=== PATIENT | male | born 1960 | race Caucasian/White ===

== ENCOUNTER 2018-07-11 16:01 | Emergency (ER) | payer OTHER ==
[2018-07-11 16:05] VITALS: BP 146/95
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
[2018-07-11] MEDS: Acetaminophen/HYDROcodone 325-5 MG Tab PO ONE (16:28)
[2018-07-11] MEDS: Ondansetron 4 MG Tab.DIS PO ONE (16:29)
[2018-07-11] MEDS: Diphtheria,Pertussis(Acell),Tetanus Vaccine 0.5 ML Syringe IM ONE (16:30)
== END 2018-07-11 16:47 | disposition home or self-care (01) ==
LOC: CC.ED 16:01
DX: S40.012A Contusion of left shoulder, initial encounter (principal); W00.0XXA Fall on same level due to ice and snow, initial encounter
CPT/HCPCS: 73030-LT; 90471; 90715; 96372; 99283; A9270-GY

== ENCOUNTER 2020-04-30 18:39 | Emergency (ER) | payer OTHER ==
[2020-04-30 19:01] LABS: CHLORIDE,CL 103 mEq/L (98-106); SODIUM,NA 140 mEq/L (136-145)
--- NOTE | 2020-04-30 19:08 | EDM.PDOC ---
ED HPI GENERAL MEDICAL PROBLEM - General Chief Complaint: Trauma Stated Complaint: TRAUMA Time Seen by Provider: 04/30/20 18:39 Source of Information: Reports: Patient, EMS, Family - History of Present Illness INITIAL COMMENTS - FREE TEXT/NARRATIVE: Dmitry is a 60 year old male who presents to the ED via [facility] with c/o fall with LOC from approximately 10 feet. 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 Bystanders report he was in a hurry and stepped back off the scaffolding, landing directly on his head. Unsure of additional details. Fall happened at approximately 1720, 1 hr and 40 minutes prior to ED arrival as location was a distance from facility and EMS crew. Was witnessed by 3 bystanders, however they are unaware of how long he was unconscious. GCS 14 upon arrival. He is alert, confused, opening eyes spontaneously, and obeying commands. He responds to questions inappropriately at times. He does not recall events leading up to or following fall. He is having active emesis upon arrival. Breathing without difficulty. Reports that his left hip hurts. ROM intact to all extremities. Does have small area of ecchymosis to left nose and orbital area. Patient exposed immediately upon arrival. No other open skin wounds. Cervical collar intact. He is on antiplatelet therapy due to hx of cardiac stents. Is currently on Effient and baby aspirin. Last ate at noon today. Onset: Today, Sudden Onset Date: 04/30/20 Onset Time: 17:20 Duration: Constant Location: Reports: Head, Lower Extremity, Left Associated Symptoms: Reports: Confusion, Headaches, Nausea/Vomiting. Denies: Chest Pain, Cough, cough w sputum, Loss of Appetite, Malaise, Shortness of Breath, Weakness Treatments REGISTERED RADIOGRAPHER: Reports: See EMS Report Left Headache Pain Score (Numeric/FACES): 10 Left Hip Pain Score (Numeric/FACES): 10 - Related Data Allergies Allergy/AdvReac Type Severity Reaction Status Date / Time No Known Allergies Allergy Verified 04/30/20 19:04 Home Meds: Home Meds Nitroglycerin 0.4 mg SL ASDIRECTED PRN 08/12/19 [History] Omeprazole 40 mg PO DAILY 08/12/19 [History] Prasugrel HCl [Effient] 10 mg PO DAILY 08/12/19 [History] atorvaSTATin [Lipitor] 80 mg PO DAILY 08/12/19 [History] Aspirin [Halfprin] 81 mg PO DAILY 04/30/20 [History] Metoprolol Tartrate 12.5 mg PO BID 04/30/20 [History] Past Medical History Cardiovascular History: Reports: PTCA Other Cardiovascular History: had cp after he fell on ice in May, said he slipped on ice, and had cp at times, sometimes then sitting, sometimes when working. Had associated fatigue. Saw a provider in [place], had a stress echo then referred on for angiogram through his wrist--healing. Denies any diabetes, hypertension, says he has always been a nonsmoker Musculoskeletal History: Reports: Other (See Below) Other Musculoskeletal History: clavicle fracture - Past Surgical History Musculoskeletal Surgical History: Reports: Other (See Below) Other Musculoskeletal Surgeries/Procedures:: plate to clavicle, rotator cuff surgery Social & Family History - Family History Family Medical History: No Pertinent Family History Review of Systems - Review of Systems Review Of Systems: Unable To Obtain Reason Not Obtained: confused, does not answer questions appropriately ED EXAM, GENERAL - Physical Exam Exam: See Below Exam Limited By: Altered Mental Status General Appearance: Alert, WD/WN, Moderate Distress Eye Exam: Bilateral Eye: EOMI, Normal Fundi, Normal Inspection, PERRL Ears: Normal External Exam, Normal Canal, Hearing Grossly Normal, Normal TMs Nose: Normal Inspection, Normal Mucosa, No Blood Throat/Mouth: Normal Inspection, Normal Lips, Normal Teeth, Normal Gums, Normal Oropharynx, Normal Voice, No Airway Compromise Head: Normocephalic, Facial Tenderness (left orbit ) Neck: Other (cervical collar intact) Respiratory/Chest: No Respiratory Distress, Lungs Clear, Normal Breath Sounds, No Accessory Muscle Use, Chest Non-Tender Cardiovascular: Normal Peripheral Pulses, Regular Rate, Rhythm, No Edema, No Murmur, No Rub Peripheral Pulses: 2+: Radial (L), Radial (R), Dorsalis Pedis (L), Dorsalis Pedis (R) GI/Abdominal: Normal Bowel Sounds, Soft, Pelvis Stable, Tender (LLQ) (Male) Exam: Normal Inspection Rectal (Males) Exam: Normal Exam Back Exam: Normal Inspection, Full Range of Motion, NT Extremities: Normal Inspection, Normal Range of Motion, Normal Capillary Refill, Leg Pain (left leg) Neurological: Alert, Confused. No: Normal Gait Psychiatric: Normal Affect, Normal Mood Skin Exam: Warm, Dry, Other (ecchymosis left nose and orbit ) Course - Vital Signs Last Recorded V/S: Last Vital Signs Temp 98.5 F 04/30/20 21:00 Pulse 62 04/30/20 21:00 Resp 20 04/30/20 21:00 BP 143/71 H 04/30/20 21:00 Pulse Ox 91 L 04/30/20 21:00 - Orders/Labs/Meds Orders: Active Orders 24 hr Category Date Time Status Cervical Spine wo Cont [CT] Stat Exams 04/30/20 18:27 Taken Chest 1V Frontal [CR] Stat Exams 04/30/20 18:25 Taken Head wo Cont [CT] Stat Exams 04/30/20 18:27 Taken Pelvis 1V or 2V [CR] Routine Exams 04/30/20 Taken CORONAVIRUS COVID-19 RAPID [MOLEC] Stat Lab 04/30/20 19:16 Ordered fentaNYL [Sublimaze] Med 04/30/20 18:50 Active 50 mcg IVPUSH Q6H PRN Medication Orders Fentanyl (Sublimaze) 50 mcg IVPUSH Q6H PRN PRN Reason: Pain Last Admin: 04/30/20 19:09 Dose: 50 mcg Documented by: [id number] Labs: Laboratory Tests 04/30/20 04/30/20 04/30/20 Range/Units 18:45 18:45 19:16 WBC 11.7 H (5.0-10.0) 10^3/uL RBC 5.24 (4.50-6.00) 10^6/uL Hgb 14.8 (14.0-18.0) g/dL Hct 44.4 (40.0-54.0) % MCV 84.7 (82.0-94.0) fL MCH 28.2 (27.0-32.0) pg MCHC 33.3 (33.0-38.0) g/dL RDW Coeff of Bindu 12.4 (11.0-15.0) % Plt Count 333 (150-400) 10^3/uL Add Manual Diff Yes Neutrophils % (Manual) 65 (35-85) % Band Neutrophils % 2 (0-5) % Lymphocytes % (Manual) 23 (21-55) % Monocytes % (Manual) 9 (2-12) % Eosinophils % (Manual) 1 (0-5) % Reactive Lymphocytes Few H (NOT SEEN) Sodium 140 (136-145) mEq/L Potassium 3.3 L (3.5-5.0) mEq/L Chloride 103 (98-106) mEq/L Carbon Dioxide 24 (21-32) mmol/L BUN 16 (7-18) mg/dL Creatinine 1.2 (0.7-1.3) mg/dL Est Cr Clr Drug Dosing TNP Estimated GFR (MDRD) > 60 (>=60) mL/min Glucose 144 H (75-99) mg/dL Calcium 8.5 (8.4-10.1) mg/dL Total Bilirubin 0.5 (0.0-1.0) mg/dL AST 75 H (15-37) U/L ALT 82 H (12-78) U/L Alkaline Phosphatase 113 (46-116) U/L Total Protein 7.2 (6.4-8.2) g/dL Albumin 3.7 (3.4-5.0) g/dL Urine Color (YELLOW) Urine Appearance (CLEAR) Urine pH (4.5-8.0) Ur Specific Maiden (1.003-1.020) Urine Protein (NEGATIVE) mg/dL Urine Glucose (UA) (NEGATIVE) mg/dL Urine Ketones (NEGATIVE) mg/dL Urine Occult Blood (NEGATIVE) Urine Nitrite (NEGATIVE) Urine Bilirubin (NEGATIVE) Urine Urobilinogen (0.2-1.0) EU/dL Ur Leukocyte Esterase (NEGATIVE) Urine RBC (0-5) /HPF Urine WBC (0-5) /HPF Ur Epithelial Cells (NOT SEEN) /HPF Urine Bacteria (NOT SEEN) /HPF SARS CoV-2 RNA Rapid HOWARD Negative (NEGATIVE) 04/30/20 Range/Units 19:34 WBC (5.0-10.0) 10^3/uL RBC (4.50-6.00) 10^6/uL Hgb (14.0-18.0) g/dL Hct (40.0-54.0) % MCV (82.0-94.0) fL MCH (27.0-32.0) pg MCHC (33.0-38.0) g/dL RDW Coeff of Bindu (11.0-15.0) % Plt Count (150-400) 10^3/uL Add Manual Diff Neutrophils % (Manual) (35-85) % Band Neutrophils % (0-5) % Lymphocytes % (Manual) (21-55) % Monocytes % (Manual) (2-12) % Eosinophils % (Manual) (0-5) % Reactive Lymphocytes (NOT SEEN) Sodium (136-145) mEq/L Potassium (3.5-5.0) mEq/L Chloride (98-106) mEq/L Carbon Dioxide (21-32) mmol/L BUN (7-18) mg/dL Creatinine (0.7-1.3) mg/dL Est Cr Clr Drug Dosing Estimated GFR (MDRD) (>=60) mL/min Glucose (75-99) mg/dL Calcium (8.4-10.1) mg/dL Total Bilirubin (0.0-1.0) mg/dL AST (15-37) U/L ALT (12-78) U/L Alkaline Phosphatase (46-116) U/L Total Protein (6.4-8.2) g/dL Albumin (3.4-5.0) g/dL Urine Color Yellow (YELLOW) Urine Appearance Clear (CLEAR) Urine pH 7.0 (4.5-8.0) Ur Specific Maiden 1.025 H (1.003-1.020) Urine Protein Negative (NEGATIVE) mg/dL Urine Glucose (UA) Negative (NEGATIVE) mg/dL Urine Ketones Negative (NEGATIVE) mg/dL Urine Occult Blood Trace-intact H (NEGATIVE) Urine Nitrite Negative (NEGATIVE) Urine Bilirubin Negative (NEGATIVE) Urine Urobilinogen 0.2 (0.2-1.0) EU/dL Ur Leukocyte Esterase Negative (NEGATIVE) Urine RBC 0-5 (0-5) /HPF Urine WBC 0-5 (0-5) /HPF Ur Epithelial Cells Occasional H (NOT SEEN) /HPF Urine Bacteria Occasional H (NOT SEEN) /HPF SARS CoV-2 RNA Rapid HOWARD (NEGATIVE) Meds: Medications Generic Name Dose Route Start Last Admin Trade Name Freq PRN Reason Stop Dose Admin Fentanyl 50 mcg 04/30/20 18:50 04/30/20 19:09 Sublimaze IVPUSH 50 mcg Q6H PRN Administration Pain Discontinued Medications Generic Name Dose Route Start Last Admin Trade Name Freq PRN Reason Stop Dose Admin Desmopressin Acetate 24 mcg 04/30/20 19:35 04/30/20 19:59 Desmopressin IV 04/30/20 19:36 24 mcg ONETIME ONE Administration Hydromorphone HCl 1 mg 04/30/20 19:33 04/30/20 19:38 Dilaudid IVPUSH 04/30/20 19:34 1 mg ONETIME ONE Administration Hydromorphone HCl 1 mg 04/30/20 19:33 04/30/20 19:38 Dilaudid IVPUSH 04/30/20 19:34 Not Given ONETIME ONE Ondansetron HCl 4 mg 04/30/20 19:09 04/30/20 19:17 Zofran IVPUSH 04/30/20 19:10 4 mg STAT STA Administration - Radiology Interpretation Free Text/Narrative:: Multiple brain bleeds. See report. CT Results Date: 04/30/20 CT Results Time: 19:27 - Re-Assessments/Exams Free Text/Narrative Re-Assessment/Exam: 04/30/20 19:10 Discussed with my concerns that he has brain bleed. Recommend we try to get transfer to higher level of care. She requests [facility]. Attempted to call [facility] for transfer. Told they will call me back. 04/30/20 19:31 Call back received from [facility]. They cannot accept at this time. No ICU beds. Will try [place]. 04/30/20 19:32 Called [facility]. Consulted with Dr. Patiño, ER physician at [facility] who accepted the patient for transfer. Recommends giving 24 mcg desmopressin and platelets. Unfortunately, we do not have platelets available. 04/30/20 20:02 [facility] 23 minutes out. GCS remains 14. VSS. No change in status. and daughter at bedside. Discussed risks and benefits of transfer. Risks of transfer include worsening of condition, , and helicopter crash. Benefits of transfer include higher level of care with neurosurgical consultation. Risks of nontransfer include worsening of condition, , and no neurosurgical speciality. Benefits of nontransfer include convenience. verbalized understanding and was agreeable to transfer via [facility]. 04/30/20 20:36 [facility] at bedside. Patient discharged to their care. Departure - Departure Time of Disposition: 20:22 Disposition: DC/Tfer to Acute Hospital 02 Condition: Critical Clinical Impression: Subdural hemorrhage, Trauma Fall as cause of accidental injury on farm [place] place of occurrence Qualifiers: Encounter type: initial encounter Qualified Code(s): W19.XXXA - Unspecified fall, initial encounter - Discharge Information Referrals: PCP,Unknown [Primary Care Provider] - Forms: ED Department Discharge Sepsis Event Note (ED) - Focused Exam Vital Signs: Vital Signs Temp Pulse Resp BP Pulse Ox 04/30/20 21:00 98.5 F 62 20 143/71 H 91 L - Problem List & Annotations (1) Fall as cause of accidental injury on farm as place of occurrence SNOMED Code(s): 214280439 Code(s): W19.XXXA - UNSPECIFIED FALL, INITIAL ENCOUNTER; Y92.79 - OTH FARM LOCATION PLACE Status: Acute Current Visit: Yes Qualifiers: Encounter type: initial encounter Qualified Code(s): W19.XXXA - Unspecified fall, initial encounter; Y92.79 - Other farm location as the place of occurrence of the external cause (2) Trauma SNOMED Code(s): 419432819 Code(s): T14.90XA - INJURY, UNSPECIFIED, INITIAL ENCOUNTER Status: Acute Current Visit: Yes (3) Subarachnoid bleed SNOMED Code(s): 143446930 Code(s): I60.9 - NONTRAUMATIC SUBARACHNOID HEMORRHAGE, UNSPECIFIED Status: Acute Current Visit: Yes (4) Intraparenchymal hematoma of left side of brain due to trauma SNOMED Code(s): 288766014, 375480063 Code(s): S06.350A - TRAUM HEMOR LEFT CEREBRUM W/O LOSS OF CONSCIOUSNESS, INIT Status: Acute Current Visit: Yes (5) Occipital fracture SNOMED Code(s): 8080525 Code(s): S02.119A - UNSP FRACTURE OF OCCIPUT, INIT ENCNTR FOR CLOSED FRACTURE Status: Acute Current Visit: Yes (6) Orbital fracture SNOMED Code(s): 22406777 Code(s): S02.85XA - FRACTURE OF ORBIT, UNSPECIFIED, INIT Status: Acute Current Visit: Yes (7) Subdural hemorrhage SNOMED Code(s): 66666989 Code(s): I62.00 - NONTRAUMATIC SUBDURAL HEMORRHAGE, UNSPECIFIED Status: Acute Current Visit: Yes (8) Left groin pain SNOMED Code(s): 00277002692981134 Code(s): R10.32 - LEFT LOWER QUADRANT PAIN Status: Acute Current Visit: Yes - Problem List Review Problem List Initiated/Reviewed/Updated: Yes - My Orders Last 24 Hours: My Active Orders 04/30/20 Pelvis 1V or 2V [CR] Routine 04/30/20 18:25 Chest 1V Frontal [CR] Stat 04/30/20 18:27 Cervical Spine wo Cont [CT] Stat Head wo Cont [CT] Stat 04/30/20 18:50 fentaNYL [Sublimaze] 50 mcg IVPUSH Q6H PRN 04/30/20 19:16 CORONAVIRUS COVID-19 RAPID [MOLEC] Stat - Assessment/Plan Last 24 Hours: My Active Orders 04/30/20 Pelvis 1V or 2V [CR] Routine 04/30/20 18:25 Chest 1V Frontal [CR] Stat 04/30/20 18:27 Cervical Spine wo Cont [CT] Stat Head wo Cont [CT] Stat 04/30/20 18:50 fentaNYL [Sublimaze] 50 mcg IVPUSH Q6H PRN 04/30/20 19:16 CORONAVIRUS COVID-19 RAPID [MOLEC] Stat Assessment:: Multiple Brain Bleeds Trauma Fall from 10 feet Left groin pain Plan: 60 yo male presents to the ED via [facility] after sustaining fall off a scaffolding from approximately 10 feet. GCS 14 on arrival and remained 14 throughout ED stay. VSS throughout ED stay. Patient was exposed upon arrival. C collar in place. Palpation throughout revealed tenderness of left hip and left orbit and occipital area. Pelvis stable. No tenderness to chest wall. Patient was taken to CT for head and cervical spine CT. CT head reveals acute left subdural hematoma with left to right midline shift of 6 mm, subarachnoid bleed of left frontal and temporal and right frontal lobe, intraparenchymal hemorrhage of left frontal and temporal lobes, as well as fracture of right occipital bone and left orbital hays. Also possible fracture of left parietal bone. CT c spine negative. Chest and pelvis xrays also negative for acute findings. Patient was given 24 mcg desmopressin IV per recommendations from accepting provider. Also recommended platelets, however we do not have these available. Patient was c/o significant pain to left hip and head. Was given total of 50 mcg fentanyl and 1 mg Dilaudid throughout ED visit. Also received 4 mg Zofran for active emesis. Patient will be transferred to [facility] via [facility]. He was discharged from facility in stable, but critical condition.
[2020-04-30] MEDS: fentaNYL 100 MCG/2 ML SDV IVPUSH PRN (19:09)
[2020-04-30] MEDS: Ondansetron 4 MG/2 ML SDV IVPUSH STA (19:17)
[2020-04-30] MEDS: HYDROmorphone 1 MG/ML Syringe IVPUSH ONE ×2 (19:38)
[2020-04-30] MEDS: Desmopressin 4 MCG/1 ML Amp IV ONE (19:59)
== END 2020-04-30 20:45 ==
LOC: CC.ED 18:39
DX: S06.5X9A Traumatic subdural hemorrhage with loss of consciousness of unspecified duration, initial encounter (principal); S00.33XA Contusion of nose, initial encounter; S05.12XA Contusion of eyeball and orbital tissues, left eye, initial encounter; Z20.828 Contact with and (suspected) exposure to other viral communicable diseases; W12.XXXA Fall on and from scaffolding, initial encounter; Y92.61 Building [any] under construction as the place of occurrence of the external cause
CPT/HCPCS: 36415; 51702; 70450; 71045; 72125; 72170; 80053; 81001; 85025; 87635; 93005; 96374; 96375; 99285; J1170; J2405; J2597; J3010; 93010; 99284; U0002

== ENCOUNTER 2022-05-26 00:01 | Emergency (ER) | payer OTHER ==
[2022-05-26] MEDS ORDERED: LORazepam 2 MG/ML Syringe ONE ×2 (00:04→00:12)
[2022-05-26] MEDS ORDERED: Sodium Chloride 0.9% 1,000 ML ONE (00:37)
[2022-05-26 00:41] LABS: CHLORIDE,CL 104 mEq/L (98-106); ESTIMATED GFR 52 mL/min (>=60); SODIUM,NA 139 mEq/L (136-145)
[2022-05-26 00:44] LABS: PTT,PARTIAL THROMBOPLSTIN TIME 22.3 SEC (23.2-32.3)
[2022-05-26] MEDS ORDERED: Sodium Chloride 0.9% 1,000 ML IV SCH (01:00)
[2022-05-26] MEDS ORDERED: LORazepam 2 MG/ML Syringe IVPUSH ONE ×2 (01:29→01:30)
[2022-05-26] MEDS ORDERED: Azithromycin 500 MG in Sodium Chloride 0.9% 250 ML IV SCH (01:30)
[2022-05-26] MEDS ORDERED: cefTRIAXone 1 GM Vial IVPUSH SCH (01:30)
[2022-05-26] MEDS ORDERED: Midazolam 1 MG/ML 2 ML SDV ONE (01:40)
== END 2022-05-26 04:30 ==
LOC: CC.ED 00:01
DX: R56.9 Unspecified convulsions (principal); J10.1 Influenza due to other identified influenza virus with other respiratory manifestations; R41.82 Altered mental status, unspecified; Z79.899 Other long term (current) drug therapy; Z79.82 Long term (current) use of aspirin; Z20.822 Contact with and (suspected) exposure to COVID-19; W19.XXXA Unspecified fall, initial encounter
CPT/HCPCS: 36415; 70450; 71045; 72125; 80053; 84484; 85025; 85610; 85730; 87804; 96361; 96374; 96375; 99284; 99285-25; J0456; J0696; J2060; J7030; J7050; U0002

== ENCOUNTER 2023-11-25 11:38 | Emergency (ER) | payer OTHER ==
[2023-11-25 11:53] VITALS: BP 138/81; PULSE 64
[2023-11-25] MEDS: Diphtheria,Pertussis(Acell),Tetanus Vaccine 0.5 ML Syringe IM ONE (12:02)
[2023-11-25] MEDS: Bacitracin/Neomycin/Polymyxin B Oint 0.9 GM U/D Packet TOP ONE (12:05)
== END 2023-11-25 12:19 | disposition home or self-care (01) ==
LOC: CC.ED 11:38
DX: S01.01XA Laceration without foreign body of scalp, initial encounter (principal); Z23 Encounter for immunization; W22.8XXA Striking against or struck by other objects, initial encounter
CPT/HCPCS: 12002; 90471; 90715; 99282-25; A9270-GY

== ENCOUNTER 2024-02-28 23:10 | Observation (INO) | payer MEDICARE, OTHER ==
[2024-02-28 23:55] LABS: BASOPHILS ABSOLUTE AUTO 0.02 10^3/uL (0.00-0.50); BASOPHILS PERCENT AUTO 0.3 % (0-1); EOSINOPHILS ABSOLUTE AUTO 0.12 10^3/uL (0.00-1.50); EOSINOPHILS PERCENT AUTO 1.8 % (0-6); HEMATOCRIT 48.1 % (42.0-52.0); HEMOGLOBIN 15.7 g/dL (14.0-18.0); IMMATURE GRAN ABSOLUTE AUTO 0.01 10^3/uL (0.00-0.49); IMMATURE GRAN PERCENT AUTO 0.2 % (0.0-4.9); LYMPHOCYTES ABSOLUTE AUTO 1.95 10^3/uL (0.60-5.00); LYMPHOCYTES PERCENT AUTO 29.9 % (24-44); MEAN CORPUSCULAR HEMOGLOBIN 30.3 pg (27.0-32.0); MEAN CORPUSCULAR HGB CONC 32.6 g/dL (32.0-36.0); MEAN CORPUSCULAR VOLUME 92.7 fL (83.0-97.0); MONOCYTES ABSOLUTE AUTO 0.82 10^3/uL (0.00-1.50); MONOCYTES PERCENT AUTO 12.6 % (0-10); NEUTROPHILS PERCENT AUTO 55.2 % (41-71); PLATELET COUNT,PLT 177 10^3/uL (150-400); RED BLOOD CELL COUNT 5.19 x10^6/uL (4.50-6.00); WHITE BLOOD CELL COUNT,WBC 6.5 10^3/uL (4.0-11.0)
[2024-02-29 00:08] LABS: ALBUMIN 3.4 g/dL (3.4-5.0); BILIRUBIN TOTAL 0.8 mg/dL (0.0-1.0); C-REACTIVE PROTEIN 0.8 mg/dL (<=0.50); CALCIUM 8.9 mg/dL (8.4-10.1); CREATININE 1.2 mg/dL (0.7-1.3); EST CRCL DRUG DOSING (CG) 58.14 mL/min; MAGNESIUM 1.9 mg/dL (1.8-2.4); PROTEIN TOTAL,TP 6.5 g/dL (6.4-8.2)
[2024-02-29] MEDS: Iopamidol 755 Mg/ML 100 ML Bottle IVPUSH ONE (00:21)
[2024-02-29] MEDS ORDERED: Acetaminophen 650 MG Supp RECTAL PRN (02:24)
[2024-02-29] MEDS ORDERED: Ondansetron 4 MG Tab.DIS PO PRN (02:24)
[2024-02-29] MEDS ORDERED: Sodium Chloride 0.9% 10 ML Syringe FLUSH PRN (02:24)
[2024-02-29] MEDS ORDERED: Ondansetron 4 MG/2 ML SDV IV PRN (02:24)
[2024-02-29] MEDS ORDERED: HYDROmorphone 1 MG/ML Syringe IVPUSH PRN (02:24)
[2024-02-29] MEDS ORDERED: Acetaminophen 325 MG Tab PO PRN (02:24)
[2024-02-29] MEDS ORDERED: Acetaminophen/HYDROcodone 325-5 MG Tab PO PRN (02:24)
[2024-02-29] MEDS ORDERED: Naloxone 2 MG/2 ML Syringe IVPUSH PRN (02:24)
[2024-02-29 07:31] LABS: BASOPHILS ABSOLUTE AUTO 0.01 10^3/uL (0.00-0.50); BASOPHILS PERCENT AUTO 0.1 % (0-1); EOSINOPHILS ABSOLUTE AUTO 0.08 10^3/uL (0.00-1.50); EOSINOPHILS PERCENT AUTO 1.1 % (0-6); HEMATOCRIT 44.9 % (42.0-52.0); HEMOGLOBIN 14.9 g/dL (14.0-18.0); IMMATURE GRAN ABSOLUTE AUTO 0.01 10^3/uL (0.00-0.49); IMMATURE GRAN PERCENT AUTO 0.1 % (0.0-4.9); LYMPHOCYTES ABSOLUTE AUTO 2.62 10^3/uL (0.60-5.00); LYMPHOCYTES PERCENT AUTO 35.9 % (24-44); MEAN CORPUSCULAR HEMOGLOBIN 30.4 pg (27.0-32.0); MEAN CORPUSCULAR HGB CONC 33.2 g/dL (32.0-36.0); MEAN CORPUSCULAR VOLUME 91.6 fL (83.0-97.0); MONOCYTES ABSOLUTE AUTO 0.82 10^3/uL (0.00-1.50); MONOCYTES PERCENT AUTO 11.2 % (0-10); NEUTROPHILS ABSOLUTE AUTO 3.75 x10^3/uL (1.80-8.00); NEUTROPHILS PERCENT AUTO 51.6 % (41-71); PLATELET COUNT,PLT 177 10^3/uL (150-400); WHITE BLOOD CELL COUNT,WBC 7.3 10^3/uL (4.0-11.0)
[2024-02-29] MEDS: Venlafaxine 37.5 MG Cap.ER PO SCH (07:44)
[2024-02-29] MEDS: Tamsulosin 0.4 MG Cap.ER PO SCH (07:44)
[2024-02-29] MEDS: Divalproex Sodium Delayed-Release 250 MG Tab.CR PO SCH (07:44)
[2024-02-29] MEDS: Multivitamin Tab PO SCH (07:44)
[2024-02-29 07:45] LABS: APPEARANCE,URINE CLEAR (CLEAR); BILIRUBIN,URINE NEGATIVE (NEGATIVE); COLOR,URINE YELLOW (YELLOW); GLUCOSE,URINE NEGATIVE (NEGATIVE); KETONES,URINE NEGATIVE (NEGATIVE); LEUKOCYTE ESTERASE,URINE NEGATIVE (NEGATIVE); NITRITE,URINE NEGATIVE (NEGATIVE); OCCULT BLOOD,URINE NEGATIVE (NEGATIVE); PROTEIN,URINE NEGATIVE (NEGATIVE); UROBILINOGEN,URINE 0.2 EU/dL (0.2-1.0)
[2024-02-29] MEDS: Magnesium Oxide 400 MG Tab PO SCH (07:45)
[2024-02-29] MEDS: Cholecalciferol (Vitamin D3) 5,000 UNIT Tab PO SCH (07:45)
[2024-02-29] MEDS: Rosuvastatin 10 MG Tab PO SCH (07:45)
[2024-02-29 07:46] LABS: ALBUMIN 3.1 g/dL (3.4-5.0); BILIRUBIN TOTAL 0.6 mg/dL (0.0-1.0); C-REACTIVE PROTEIN 0.74 mg/dL (<=0.50); CALCIUM 8.9 mg/dL (8.4-10.1); CREATININE 1.2 mg/dL (0.7-1.3); EST CRCL DRUG DOSING (CG) 58.14 mL/min; POTASSIUM,K 4.1 mEq/L (3.5-5.0)
[2024-02-29] MEDS ORDERED: Non-Formulary Medication 1 Each (Divalproex Sodium 500 MG Tablet.Dr) PO SCH (08:00)
[2024-02-29] MEDS ORDERED: LACOSAMIDE 200 MG PO SCH (08:00)
[2024-02-29] MEDS ORDERED: Non-Formulary Medication 1 Each (Venlafaxine [Effexor] 37.5 MG Tablet) PO SCH (08:00)
[2024-02-29] MEDS: LACOSAMIDE 200 MG PO SCH (08:24)
[2024-02-29] MEDS ORDERED: HYDROmorphone 0.5 MG/0.5 ML Syringe IVPUSH PRN (08:43)
[2024-02-29] MEDS ORDERED: Divalproex Sodium Delayed-Release 250 MG Tab.CR PO SCH ×2 (20:00)
== END 2024-02-29 13:35 | disposition home or self-care (01) ==
LOC: CC.ED 23:10 → CC.MS 02-29 00:50 → UNDOADMOB 02-29 00:50 → CC.MS 02-29 00:53 → CC.ED 02-29 00:55
PROVIDERS: ADMIT Nurse Practitioner Family; ATTEND Nurse Practitioner Family
DX: S80.212A Abrasion, left knee, initial encounter (principal); W10.8XXA Fall (on) (from) other stairs and steps, initial encounter
CPT/HCPCS: 36415; 70450; 71045; 73030-RT; 73080-RT; 74177; 80053; 81003; 83735; 85025; 86140; 93005; 93010; 99236; A9270-GY; G0378; Q9967

== ENCOUNTER 2024-06-18 09:13 | Emergency (ER) | payer MEDICARE, OTHER ==
[2024-06-18] MEDS: Lidocaine 1% 5 ML VIAL INJECT ONE (09:39)
[2024-06-18] MEDS: Bacitracin/Neomycin/Polymyxin B Oint 0.9 GM U/D Packet TOP ONE (09:57)
== END 2024-06-18 10:04 | disposition home or self-care (01) ==
LOC: CC.ED 09:13
DX: S01.111A Laceration without foreign body of right eyelid and periocular area, initial encounter (principal); Z79.82 Long term (current) use of aspirin; Z79.899 Other long term (current) drug therapy; W18.30XA Fall on same level, unspecified, initial encounter
CPT/HCPCS: 12011; 99282; A9270; J3490

== ENCOUNTER 2024-07-24 13:52 | Emergency (ER) | payer MEDICARE, OTHER ==
[2024-07-24] MEDS: Lidocaine 1% 5 ML VIAL INJECT ONE (13:58)
[2024-07-24] MEDS: Bacitracin Oint 1 GM U/D Packet TOP ONE (13:58)
== END 2024-07-24 14:40 | disposition home or self-care (01) ==
LOC: CC.ED 13:52
DX: S01.511A Laceration without foreign body of lip, initial encounter (principal); Z79.82 Long term (current) use of aspirin; Z79.899 Other long term (current) drug therapy; W18.39XA Other fall on same level, initial encounter; Y93.89 Activity, other specified
CPT/HCPCS: 12011; 99282; J2003

== ENCOUNTER 2024-11-10 13:07 | Inpatient (IN) | payer MEDICARE, OTHER ==
[2024-11-10] MEDS ORDERED: Ondansetron 4 MG/2 ML SDV IV PRN (15:18)
[2024-11-10] MEDS: Lactobacillus Rhamnosus GG (Probiotic) Cap PO SCH (19:54)
[2024-11-10] MEDS: Fish Oil/Omega-3 Fatty Acids 1 Gm Cap PO SCH (19:54)
[2024-11-10] MEDS: Divalproex Sodium Delayed-Release 250 MG Tab.CR PO SCH ×2 (19:54→19:55)
[2024-11-10] MEDS: LACOSAMIDE 200 MG PO SCH (20:42)
[2024-11-11] MEDS ORDERED: Non-Formulary Medication 1 Each (Magnesium Oxide [Magnesium] 500 MG Capsule) PO SCH (08:00)
[2024-11-11] MEDS: Cholecalciferol (Vitamin D3) 5,000 UNIT Tab PO SCH (08:24)
[2024-11-11] MEDS: Calcium Carbonate/Vitamin D3 1250 MG-5 MCG Tab PO SCH (08:26)
[2024-11-11] MEDS: Venlafaxine 37.5 MG Cap.ER PO SCH (08:26)
[2024-11-14 07:17] LABS: BASOPHILS ABSOLUTE AUTO 0.03 10^3/uL (0.00-0.50); BASOPHILS PERCENT AUTO 0.8 % (0-1); EOSINOPHILS ABSOLUTE AUTO 0.09 10^3/uL (0.00-1.50); EOSINOPHILS PERCENT AUTO 2.4 % (0-6); IMMATURE GRAN ABSOLUTE AUTO 0.01 10^3/uL (0.00-0.49); IMMATURE GRAN PERCENT AUTO 0.3 % (0.0-4.9); LYMPHOCYTES ABSOLUTE AUTO 2.06 10^3/uL (0.60-5.00); LYMPHOCYTES PERCENT AUTO 54.8 % (24-44); MONOCYTES ABSOLUTE AUTO 0.50 10^3/uL (0.00-1.50); MONOCYTES PERCENT AUTO 13.3 % (0-10); NEUTROPHILS ABSOLUTE AUTO 1.07 x10^3/uL (1.80-8.00); NEUTROPHILS PERCENT AUTO 28.4 % (41-71); PLATELET COUNT,PLT 215 10^3/uL (150-400); RED BLOOD CELL COUNT 4.24 x10^6/uL (4.50-6.00); WHITE BLOOD CELL COUNT,WBC 3.8 10^3/uL (4.0-11.0)
[2024-11-14 07:20] LABS: SEDIMENTATION RATE MANUAL 36 mm/hr (0-15)
[2024-11-14 07:33] LABS: ALANINE AMINOTRANSFERASE,ALT 31 U/L (12-78); ASPARTATE AMNIOTRANSFERASE,AST 40 U/L (15-37); BILIRUBIN TOTAL 0.3 mg/dL (0.0-1.0); BLOOD UREA NITROGEN,BUN 13 mg/dL (7-18); CARBON DIOXIDE,CO2 29 mmol/L (21-32); CHLORIDE,CL 105 mEq/L (98-106); CREATINE KINASE,CK 29 U/L (35-232); CREATININE 1.0 mg/dL (0.7-1.3); EST CRCL DRUG DOSING (CG) 72.20 mL/min; GLUCOSE RANDOM 86 mg/dL (75-99); POTASSIUM,K 4.0 mEq/L (3.5-5.0); PROTEIN TOTAL,TP 7.0 g/dL (6.4-8.2); SODIUM,NA 141 mEq/L (136-145)
[2024-11-14 07:36] LABS: ESTIMATED GFR 84 mL/min (>=60)
[2024-11-17 08:04] LABS: ALANINE AMINOTRANSFERASE,ALT 28.0 U/L (12-78); ASPARTATE AMNIOTRANSFERASE,AST 36.0 U/L (15-37); BILIRUBIN TOTAL 0.3 mg/dL (0.0-1.0); BLOOD UREA NITROGEN,BUN 11.0 mg/dL (7-18); CARBON DIOXIDE,CO2 29.0 mmol/L (21-32); CHLORIDE,CL 106.0 mEq/L (98-106); CREATININE 0.9 mg/dL (0.7-1.3); EST CRCL DRUG DOSING (CG) 80.22 mL/min; GLUCOSE RANDOM 93.0 mg/dL (75-99); POTASSIUM,K 4.0 mEq/L (3.5-5.0); PROTEIN TOTAL,TP 7.3 g/dL (6.4-8.2); SODIUM,NA 141.0 mEq/L (136-145)
[2024-11-17 08:11] LABS: ESTIMATED GFR 95.0 mL/min (>=60)
[2024-11-21 07:54] LABS: BASOPHILS ABSOLUTE AUTO 0.03 10^3/uL (0.00-0.50); BASOPHILS PERCENT AUTO 0.9 % (0-1); EOSINOPHILS ABSOLUTE AUTO 0.08 10^3/uL (0.00-1.50); EOSINOPHILS PERCENT AUTO 2.4 % (0-6); IMMATURE GRAN ABSOLUTE AUTO 0.01 10^3/uL (0.00-0.49); IMMATURE GRAN PERCENT AUTO 0.3 % (0.0-4.9); LYMPHOCYTES ABSOLUTE AUTO 1.76 10^3/uL (0.60-5.00); LYMPHOCYTES PERCENT AUTO 53.7 % (24-44); MONOCYTES ABSOLUTE AUTO 0.44 10^3/uL (0.00-1.50); MONOCYTES PERCENT AUTO 13.4 % (0-10); NEUTROPHILS ABSOLUTE AUTO 0.96 x10^3/uL (1.80-8.00); NEUTROPHILS PERCENT AUTO 29.3 % (41-71); PLATELET COUNT,PLT 190 10^3/uL (150-400); RED BLOOD CELL COUNT 4.76 x10^6/uL (4.50-6.00); WHITE BLOOD CELL COUNT,WBC 3.3 10^3/uL (4.0-11.0)
[2024-11-21 08:05] LABS: ALANINE AMINOTRANSFERASE,ALT 29 U/L (12-78); ASPARTATE AMNIOTRANSFERASE,AST 33 U/L (15-37); BILIRUBIN TOTAL 0.4 mg/dL (0.0-1.0); BLOOD UREA NITROGEN,BUN 12 mg/dL (7-18); CARBON DIOXIDE,CO2 30 mmol/L (21-32); CHLORIDE,CL 105 mEq/L (98-106); CREATINE KINASE,CK 30 U/L (35-232); CREATININE 0.9 mg/dL (0.7-1.3); EST CRCL DRUG DOSING (CG) 80.22 mL/min; GLUCOSE RANDOM 84 mg/dL (75-99); POTASSIUM,K 4.1 mEq/L (3.5-5.0); PROTEIN TOTAL,TP 7.1 g/dL (6.4-8.2); SODIUM,NA 144 mEq/L (136-145)
[2024-11-21 08:13] LABS: SEDIMENTATION RATE MANUAL 23 mm/hr (0-15)
[2024-11-21 08:15] LABS: ESTIMATED GFR 95 mL/min (>=60)
[2024-11-28 07:44] LABS: BASOPHILS ABSOLUTE AUTO 0.01 10^3/uL (0.00-0.50); BASOPHILS PERCENT AUTO 0.5 % (0-1); EOSINOPHILS ABSOLUTE AUTO 0.05 10^3/uL (0.00-1.50); EOSINOPHILS PERCENT AUTO 2.3 % (0-6); IMMATURE GRAN ABSOLUTE AUTO 0.00 10^3/uL (0.00-0.49); IMMATURE GRAN PERCENT AUTO 0.0 % (0.0-4.9); LYMPHOCYTES ABSOLUTE AUTO 1.18 10^3/uL (0.60-5.00); LYMPHOCYTES PERCENT AUTO 54.6 % (24-44); MONOCYTES ABSOLUTE AUTO 0.45 10^3/uL (0.00-1.50); MONOCYTES PERCENT AUTO 20.8 % (0-10); NEUTROPHILS ABSOLUTE AUTO 0.47 x10^3/uL (1.80-8.00); NEUTROPHILS PERCENT AUTO 21.8 % (41-71); PLATELET COUNT,PLT 145 10^3/uL (150-400); RED BLOOD CELL COUNT 5.03 x10^6/uL (4.50-6.00); WHITE BLOOD CELL COUNT,WBC 2.2 10^3/uL (4.0-11.0)
[2024-11-28 07:56] LABS: SEDIMENTATION RATE MANUAL 25 mm/hr (0-15)
[2024-11-28 08:05] LABS: ALANINE AMINOTRANSFERASE,ALT 12 U/L (12-78); ASPARTATE AMNIOTRANSFERASE,AST 33 U/L (15-37); BILIRUBIN TOTAL 0.3 mg/dL (0.0-1.0); BLOOD UREA NITROGEN,BUN 11 mg/dL (7-18); CARBON DIOXIDE,CO2 31 mmol/L (21-32); CHLORIDE,CL 103 mEq/L (98-106); CREATINE KINASE,CK 41 U/L (35-232); CREATININE 1.1 mg/dL (0.7-1.3); EST CRCL DRUG DOSING (CG) 65.64 mL/min; GLUCOSE RANDOM 83 mg/dL (75-99); POTASSIUM,K 4.0 mEq/L (3.5-5.0); PROTEIN TOTAL,TP 6.8 g/dL (6.4-8.2); SODIUM,NA 138 mEq/L (136-145)
[2024-11-28 08:13] LABS: ESTIMATED GFR 75 mL/min (>=60)
[2024-11-30 07:32] LABS: BASOPHILS ABSOLUTE AUTO 0.02 10^3/uL (0.00-0.50); BASOPHILS PERCENT AUTO 1.0 % (0-1); EOSINOPHILS ABSOLUTE AUTO 0.03 10^3/uL (0.00-1.50); EOSINOPHILS PERCENT AUTO 1.5 % (0-6); IMMATURE GRAN ABSOLUTE AUTO 0.01 10^3/uL (0.00-0.49); IMMATURE GRAN PERCENT AUTO 0.5 % (0.0-4.9); LYMPHOCYTES ABSOLUTE AUTO 1.14 10^3/uL (0.60-5.00); LYMPHOCYTES PERCENT AUTO 57.9 % (24-44); MONOCYTES ABSOLUTE AUTO 0.45 10^3/uL (0.00-1.50); MONOCYTES PERCENT AUTO 22.8 % (0-10); NEUTROPHILS ABSOLUTE AUTO 0.32 x10^3/uL (1.80-8.00); NEUTROPHILS PERCENT AUTO 16.3 % (41-71); PLATELET COUNT,PLT 146 10^3/uL (150-400); RED BLOOD CELL COUNT 4.81 x10^6/uL (4.50-6.00); WHITE BLOOD CELL COUNT,WBC 2.0 10^3/uL (4.0-11.0)
[2024-12-05 07:58] LABS: BASOPHILS ABSOLUTE AUTO 0.02 10^3/uL (0.00-0.50); BASOPHILS PERCENT AUTO 0.5 % (0-1); EOSINOPHILS ABSOLUTE AUTO 0.06 10^3/uL (0.00-1.50); EOSINOPHILS PERCENT AUTO 1.6 % (0-6); IMMATURE GRAN ABSOLUTE AUTO 0.01 10^3/uL (0.00-0.49); IMMATURE GRAN PERCENT AUTO 0.3 % (0.0-4.9); LYMPHOCYTES ABSOLUTE AUTO 2.17 10^3/uL (0.60-5.00); LYMPHOCYTES PERCENT AUTO 57.1 % (24-44); MONOCYTES ABSOLUTE AUTO 0.36 10^3/uL (0.00-1.50); MONOCYTES PERCENT AUTO 9.5 % (0-10); NEUTROPHILS ABSOLUTE AUTO 1.18 x10^3/uL (1.80-8.00); NEUTROPHILS PERCENT AUTO 31.0 % (41-71); PLATELET COUNT,PLT 187 10^3/uL (150-400); RED BLOOD CELL COUNT 5.15 x10^6/uL (4.50-6.00); WHITE BLOOD CELL COUNT,WBC 3.8 10^3/uL (4.0-11.0)
[2024-12-05 08:12] LABS: SEDIMENTATION RATE MANUAL 11 mm/hr (0-15)
[2024-12-05 08:27] LABS: ALANINE AMINOTRANSFERASE,ALT 23 U/L (12-78); ASPARTATE AMNIOTRANSFERASE,AST 33 U/L (15-37); BILIRUBIN TOTAL 0.3 mg/dL (0.0-1.0); BLOOD UREA NITROGEN,BUN 11 mg/dL (7-18); CARBON DIOXIDE,CO2 29 mmol/L (21-32); CHLORIDE,CL 103 mEq/L (98-106); CREATINE KINASE,CK 36 U/L (35-232); CREATININE 0.9 mg/dL (0.7-1.3); EST CRCL DRUG DOSING (CG) 80.22 mL/min; GLUCOSE RANDOM 84 mg/dL (75-99); POTASSIUM,K 4.1 mEq/L (3.5-5.0); PROTEIN TOTAL,TP 6.6 g/dL (6.4-8.2); SODIUM,NA 141 mEq/L (136-145)
[2024-12-05 08:36] LABS: ESTIMATED GFR 95 mL/min (>=60)
[2024-12-10 09:38] LABS: BASOPHILS ABSOLUTE AUTO 0.02 10^3/uL (0.00-0.50); BASOPHILS PERCENT AUTO 0.5 % (0-1); EOSINOPHILS ABSOLUTE AUTO 0.04 10^3/uL (0.00-1.50); EOSINOPHILS PERCENT AUTO 1.1 % (0-6); IMMATURE GRAN ABSOLUTE AUTO 0.01 10^3/uL (0.00-0.49); IMMATURE GRAN PERCENT AUTO 0.3 % (0.0-4.9); LYMPHOCYTES ABSOLUTE AUTO 1.71 10^3/uL (0.60-5.00); LYMPHOCYTES PERCENT AUTO 45.0 % (24-44); MONOCYTES ABSOLUTE AUTO 0.38 10^3/uL (0.00-1.50); MONOCYTES PERCENT AUTO 10.0 % (0-10); NEUTROPHILS ABSOLUTE AUTO 1.64 x10^3/uL (1.80-8.00); NEUTROPHILS PERCENT AUTO 43.1 % (41-71); PLATELET COUNT,PLT 148 10^3/uL (150-400); RED BLOOD CELL COUNT 4.42 x10^6/uL (4.50-6.00); WHITE BLOOD CELL COUNT,WBC 3.8 10^3/uL (4.0-11.0)
[2024-12-10 09:52] LABS: ALANINE AMINOTRANSFERASE,ALT 13 U/L (12-78); ASPARTATE AMNIOTRANSFERASE,AST 29 U/L (15-37); BILIRUBIN TOTAL 0.4 mg/dL (0.0-1.0); BLOOD UREA NITROGEN,BUN 9 mg/dL (7-18); CARBON DIOXIDE,CO2 27 mmol/L (21-32); CHLORIDE,CL 108 mEq/L (98-106); CREATININE 0.8 mg/dL (0.7-1.3); EST CRCL DRUG DOSING (CG) 90.25 mL/min; ESTIMATED GFR 99 mL/min (>=60); GLUCOSE RANDOM 80 mg/dL (75-99); POTASSIUM,K 3.3 mEq/L (3.5-5.0); PROTEIN TOTAL,TP 6.0 g/dL (6.4-8.2); SODIUM,NA 143 mEq/L (136-145)
[2024-12-10] MEDS: Potassium Chloride 10 MEQ Tab.ER PO SCH (11:48)
[2024-12-12 07:31] LABS: BASOPHILS ABSOLUTE AUTO 0.01 10^3/uL (0.00-0.50); BASOPHILS PERCENT AUTO 0.2 % (0-1); EOSINOPHILS ABSOLUTE AUTO 0.06 10^3/uL (0.00-1.50); EOSINOPHILS PERCENT AUTO 1.4 % (0-6); IMMATURE GRAN ABSOLUTE AUTO 0.00 10^3/uL (0.00-0.49); IMMATURE GRAN PERCENT AUTO 0.0 % (0.0-4.9); LYMPHOCYTES ABSOLUTE AUTO 2.13 10^3/uL (0.60-5.00); LYMPHOCYTES PERCENT AUTO 50.5 % (24-44); MONOCYTES ABSOLUTE AUTO 0.43 10^3/uL (0.00-1.50); MONOCYTES PERCENT AUTO 10.2 % (0-10); NEUTROPHILS ABSOLUTE AUTO 1.59 x10^3/uL (1.80-8.00); NEUTROPHILS PERCENT AUTO 37.7 % (41-71); PLATELET COUNT,PLT 219 10^3/uL (150-400); RED BLOOD CELL COUNT 5.23 x10^6/uL (4.50-6.00); WHITE BLOOD CELL COUNT,WBC 4.2 10^3/uL (4.0-11.0)
[2024-12-12 07:32] LABS: ALANINE AMINOTRANSFERASE,ALT 47 U/L (12-78); ASPARTATE AMNIOTRANSFERASE,AST 48 U/L (15-37); BILIRUBIN TOTAL 0.3 mg/dL (0.0-1.0); BLOOD UREA NITROGEN,BUN 11 mg/dL (7-18); CARBON DIOXIDE,CO2 31 mmol/L (21-32); CHLORIDE,CL 103 mEq/L (98-106); CREATINE KINASE,CK 38 U/L (35-232); CREATININE 1.1 mg/dL (0.7-1.3); EST CRCL DRUG DOSING (CG) 65.64 mL/min; GLUCOSE RANDOM 82 mg/dL (75-99); POTASSIUM,K 4.0 mEq/L (3.5-5.0); PROTEIN TOTAL,TP 6.8 g/dL (6.4-8.2); SODIUM,NA 140 mEq/L (136-145)
[2024-12-12 07:41] LABS: SEDIMENTATION RATE MANUAL 12 mm/hr (0-15)
[2024-12-12 07:47] LABS: ESTIMATED GFR 75 mL/min (>=60)
[2024-12-15] MEDS: Ondansetron 4 MG Tab.DIS PO PRN (09:40)
[2024-12-16 08:08] VITALS: BP 103/64; PULSE 60
== END 2024-12-16 16:47 | disposition home health service (06) | DRG 552 ==
LOC: UNDOADMIN 14:18 → CC.MS 14:18
PROVIDERS: ADMIT Nurse Practitioner; ATTEND Nurse Practitioner
DX: M46.42 Discitis, unspecified, cervical region (principal); M46.22 Osteomyelitis of vertebra, cervical region; Z66 Do not resuscitate; H54.7 Unspecified visual loss; N40.0 Benign prostatic hyperplasia without lower urinary tract symptoms; R00.1 Bradycardia, unspecified; R53.81 Other malaise; Z79.82 Long term (current) use of aspirin; Z79.899 Other long term (current) drug therapy; Z87.81 Personal history of (healed) traumatic fracture; Z98.890 Other specified postprocedural states
CPT/HCPCS: 36415; 80053; 82550; 83735; 84484; 85025; 85651; 86140; 93005; 97110-GP; 97116-GP; 97162-GP; 97530-GP; A9270-GY; J0692; J0878; J1642; J7030